=== PATIENT | female | born 1945 | race Caucasian/White ===

== ENCOUNTER 2017-07-29 19:50 | Emergency (ER) | payer MEDICAID, MEDICARE ==
[~2017-07-29] VITALS: Ht 157.5 cm; Wt 127.3 kg
[~2017-07-29 19:50] MED LIST: ASPI-664 PO; GLYB1TAB2 PO; IND20 PO; MECL25TA2 PO; OMEP20CA16 PO; SIMV20TA2 PO; VERA80TA PO
[2017-07-29 19:56] VITALS: Ht 157.5 cm; Wt 127.3 kg
[2017-07-29] MEDS ORDERED: PHENYLephrine 0.5% 15 ML NAS SPRAY NASAL ONE (20:00)
== END 2017-07-29 21:10 | disposition left against medical advice (07) ==
LOC: E/R 19:50
DX: Z53.21 Procedure and treatment not carried out due to patient leaving prior to being seen by health care provider (principal)

== ENCOUNTER 2017-10-09 11:08 | Emergency (ER) | END 2017-10-09 15:47 | disposition home or self-care (01) ==